=== PATIENT | female | born 1980 | race Caucasian/White ===

== ENCOUNTER → 2019-02-13 15:32 | Outpatient (ROUT) | payer OTHER, MEDICAID, SELFPAY | PROVIDERS: Visit Provider Nurse Practitioner Obstetrics & Gynecology | DX: O09.523 Supervision of elderly multigravida, third trimester (principal); Z11.0 Encounter for screening for intestinal infectious diseases | CPT/HCPCS: 87081 ==

== ENCOUNTER 2019-03-03 01:36 | Observation (INO) | payer OTHER, MEDICAID, SELFPAY ==
[2019-03-03 01:43] VITALS: BMI 29.5
[2019-03-03 01:58] VITALS: BP 98/52; PULSE 107; RESP 16; TEMP 37.4; O2SAT 95
--- NOTE | 2019-03-03 02:00 | P.HPOB_ITS ---
OB HPI History of Present Condition Chief complaint: pnuemonia Narrative: Jody Quinteros is a 38 year old female @38 weeks by early US dating transferred from [facility] ED by air transport for admission for CAP and tachycardia. No concern for labor at this time. +FM and no cramping, leaking fluid or vaginal bleeding. Presented to the ED with flu like symptoms on Tamiflu x2 days (started 02/28/19 evening). Was diagnosed in ED with R middle lobe pneumonia by chest x-ray and persistent tachycardia 105-120bpm. Uncomplicated care w/ CMN. Meds: Received Albuterol nebulizer in ED @2040 which helped her breathing. Received potassium chloride 20mEq @4, ceftriaxone 2g IV @ 2234, azithromycin 500mg IV @ 6 and oseltamivir 75mg @ 2345. Takes vitamin daily, sertraline 25mg daily in am and levothyroxine 50mcg daily at bedtime and did not take it tonight. Evaluation Evaluation Baseline heart rate: 145 Variability: Moderate (11-25) monitor accelerations: Present monitor decelerations: Variable Contraction Frequency (minutes): 0 Laboratory results: CE deferred [facility] Medical History (Updated 03/03/19 @ 02:31 by Anju Vázquez CNM) ACL (anterior cruciate ligament) tear (Acute) Surgical History (Updated 03/03/19 @ 02:17 by Anju Vázquez CNM) History of repair of ACL (Acute) Social History (Updated 03/03/19 @ 02:18 by Anju Vázquez CNM) marital status: number of children: 4 household members: spouse and children lives independently: Yes housing: house education level: college Smoking Status: Never smoker alcohol intake: former substance use type: does not use Meds Home Medications and Allergies Home Medications Medication Instructions Recorded Confirmed Type levothyroxine 50 mcg PO DAILY 03/03/19 03/03/19 History oseltamivir 75 mg PO BID 03/03/19 03/03/19 History vit no.[id number] 1 tab PO DAILY 03/03/19 03/03/19 History [Classic ] sertraline 25 mg PO DAILY 03/03/19 03/03/19 History Allergies Allergy/AdvReac Type Severity Reaction Status Date / Time No Known Drug Allergies Allergy Verified 03/03/19 02:07 Review of Systems Constitutional Constitutional: Reports chills and Reports fatigue ENT Ears, Nose, Mouth, and Throat: Yes hoarseness, Yes nasal congestion and Yes sore throat Respiratory Respiratory: Reports chest congestion, Reports cough and Reports pain with cough Endocrine Endocrine: Reports fatigue Exam Vital Signs (past 8 hours): BP 9/52, [id number], IiB841%RA, T99.4F, RR16 Oxygen Delivery Method Room Air Const General: cooperative and well groomed Orientation: alert, awake and oriented x3 HENMT Head: normal to inspection Eyes General: appearance normal, both eyes and all related structures Conjunctivae: conjunctivae normal Neck Neck: normal visual inspection and full ROM Chest Chest: normal inspection of the chest Resp Effort & Inspection: able to speak in complete sentences and cough Auscultation: clear to auscultation bilaterally Cardio Rate: regular rate Rhythm: regular rhythm Heart Sounds: S1 normal and S2 normal Uterus Location (Fundal Height): 38 Presentation: vertex Estimated Weight (lbs): 7 Other: Reactive NST upon admission Objective Imaging Chest x-ray: Radiologist's impression: 03/02/19 @ 2150: Right middle lobe density adjacent to the cardiac margin. No pleural effusion or pneumothorax. No pulmonary edema Labs Labs: 03/02/19 @2053: WBC-11.8 Hgb-12.4 Hct-36.1 Plt-134 (L) Sodium-134 (L) potassium-3.2 (L) chloride-101 Glucose-124 Urine dip negative with exception of trace leukocytes and +2 ketones Lactate-1.1 Assessment and Plan Assessment and Plan Assessment and Plan narrative: A:Term multipara @ 38wks EGA AMA Hypothyroid-stable on levothyroxine depression-stable on sertraline idiopathic thrombocytopenia in Influenza Community aquired pneumonia Reactive NST P: Admit for observation. Will continue IV fluids, antiviral medication, antibiotics Q24 hours and normal outpatient medications. RT consultation for nebulizer treatments PRN. NST Q12 hours and VS Q4 hours. Encourage rest. Reassess in am. Consulted [facility]/ who agreed w/ plan of care. Time Spent with Patient Total time spent with greater than 50% in coordination of care (as documented) at patient's floor/unit and/or counseling patient:: 25 - 35 minutes
[2019-03-03] MEDS: ACETAMINOPHEN 325 MG TABLET 650 MG PO (02:18)
[2019-03-03] MEDS: LEVOTHYROXINE 50 MCG TABLET PO (02:18)
[2019-03-03] MEDS: LACTATED RINGERS 1,000 ML 125 ML IV (02:19)
[2019-03-03 02:39] VITALS: PULSE 96; RESP 16; O2SAT 96
[2019-03-03] MEDS: ALBUTEROL 2.5 MG/3 ML NEB (ADULT) INH (02:39)
[2019-03-03] MEDS: BENZOCAINE/MENTHOL 1 LOZ PKT 1 EACH PO ×2 (03:00→07:30)
--- NOTE | 2019-03-03 03:09 | PC.ADMIT ---
Addendum entered by Starr Mario R.N. 03/03/19 05:53: Patient resting. C/O sore throat - Anju Vázquez CNM aware, Cepacol per orders. BP 85/48 MAP 66. Receiving maintenance IVF and in NAD. CNM aware of BP on the low side, this is baseline for patient. Temp 100.1, tylenol given prior for mild pain. Patient without contractions. No acute changes since admission. Original Note: 5 [facility] Admission Note: The patient,Jody Quinteros,38 y/o, was given written information regarding hospital policies, unit procedures and contact persons. Patient's smoking status: Never smoker. Vital Signs - 8 hr 03/03/19 01:58 03/03/19 02:39 Temperature 99.4 F Pulse Rate 107 H 96 H Respiratory Rate 16 16 Blood Pressure 98/52 L Pulse Oximetry 95 96 Patient arrived @ 0120 to room 105 from [place] via EMS transport. Awake, alert in NAD. Temp 99.4 - face flushed. C/O back pain from stretcher 06/08. Anju Vázquez CNM at bedside upon arrival. 38 weeks TOCO with FHT 145-160. BP stable at patient's baseline. Slight sinus tachycardia - 90's to low 100's. Up to BR with SBA, steady gait. Voiding without difficulty. IVF initiated per orders LR @ 125 mL/hour. RT at bedside for breathing treatment. Pt c/o tightness upon inspiration. Oriented to room, plan of care and call light.
[2019-03-03 03:50] VITALS: BP 85/48; PULSE 100; RESP 16; TEMP 37.8; O2SAT 98
[2019-03-03 06:23] VITALS: BP 106/44; PULSE 97; RESP 16; TEMP 36.3; O2SAT 98
[2019-03-03 07:40] VITALS: BP 91/48; PULSE 85; RESP 18; TEMP 36.4; O2SAT 98
--- NOTE | 2019-03-03 08:33 | CM.DANOTE ---
Discharge Planning/Care Management DCP: assessment: case received, EMR reviewed. Documentation reveals that pt is a 38 year old female who was airlifted from [facility] on [facility] to care of OBGYN team. Admitted by NESSA Vázquez who also consulted with automation machine operator Dr. Kenny early this mornin Pt is under care of CMN Mirela Pineda and with an uncomplicated course. She is admitted now for Community Acquired Pneumonia with tachycardia and is in the ICU setting. DROPLET Precautions: noted. Payer: [employer] [facility]/Medicaid. Pt's spouse: Adán Mccraryvist: cell [phone]. DCP team will be following as POC unfolds to assist with any d/c needs that may arise and to continue the assessment process as pt when pt is feeling better. CM Discharge Assessment Start: 03/03/19 08:31 Freq: Status: Active Protocol: Document 03/03/19 08:31 ITV (Rec: 03/03/19 08:32 ITV [id number]) Discharge Planning Assessment Advance Directives? No History Provided By Medical Record Prior Living Arrangements House Household Members spouse,children Comment 4 children. currently 38 weeks . Review Status In Process
[2019-03-03] MEDS: OSELTAMIVIR 75 MG CAPSULE PO (08:45)
[2019-03-03] MEDS: PRENATAL VIT,CALC/IRON/FOLIC 1 TABLET 1 TAB PO (08:45)
[2019-03-03] MEDS: SERTRALINE 25 MG TABLET PO (08:45)
[2019-03-03] MEDS: ZOLPIDEM 5 MG TABLET PO (09:13)
--- NOTE | 2019-03-03 09:18 | PC.NURSE ---
Patient alert, oriented, denies shortness of breath, nausea. Reports pain to left ribs with coughing, afebrile up to bathroom independent. Anju Honeycutts in to see patient and check FHT. Patient requesting something for sleep, 5mg ambien given as ordered for one time dose now.
[2019-03-03 10:06] LABS: Procalcitonin < 0.05 ng/mL (<0.5)
--- NOTE | 2019-03-03 13:35 | PM.PN.1 ---
Subjective Subjective Date Patient Seen: 03/03/19 Time Patient Seen: 08:45 Interval history: Patient has been afebrile without tachycardia since 2am. Has been unable to sleep due to ICU activity and is requesting medication to sleep. Feels slightly improved since prior to ED visit. Continues to have productive cough. Respiratory effort improved w/ nebulizer treatments. Exam Vital Signs (past 8 hours): - 03/03/19 06:23 03/03/19 07:40 Temperature 97.3 F L 97.6 F Pulse Rate 97 H 85 Respiratory Rate 16 18 Blood Pressure 106/44 L 91/48 L Pulse Oximetry 98 98 Fraction of Inspired Oxygen 96 Oxygen Delivery Method Room Air Oxygen Flow Rate 0 Resp Effort & Inspection: able to speak in complete sentences and cough Auscultation: clear to auscultation bilaterally Cardio Palpation: normal PMI Rate: regular rate Rhythm: regular rhythm Heart Sounds: S1 normal and S2 normal Objective Labs Labs: Laboratory Results - last 24 hr 03/03/19 03/03/19 01:20 09:11 Procalcitonin < 0.05 Nasal Screen MRSA (PCR) Negative for mrsa Assessment & Plan Assessment & Plan narrative: A:Term multipara @ 38wks EGA AMA Hypothyroid-stable on levothyroxine depression-stable on sertraline idiopathic thrombocytopenia in Influenza B Community aquired pneumonia, likely viral P: Discussed case with and who recommend procalcitonin level which was ordered and pending. Suspect no need to continue antibiotic tx. Will order zolpidem for sleep, encourage 6 hours of sleep and consult IM/ this afternoon prior to discharge. FHR monitors placed by CNM, initially looking good, will have OB RN come removed monitors and call if non-reactive. Time Spent With Patient Time with patient: less than 15 minutes Quality VTE Deep Vein Thrombosis/Pulmonary Embolism Present on Admission: No
--- NOTE | 2019-03-03 13:47 | P.DS_ITS ---
History of Present Illness History of Present Illness Chief complaint: pneumonia Discharge Providers Provider Date of admission: 03/03/19 01:36 Discharge Date: 03/03/19 Primary care physician: Mirela Pineda MD Discharge provider: Anju Vázquez CNM Summary Hospital Course Discharge Diagnosis: Pneumonia Tachycardia-resolved Hospital Course: Patient was admitted for observation from [facility] ED where influenza B, R middle lobe pneumonia and tachycardia was diagnosed. Give 38 week gestational age of living remote form medical treatment facility, observation was warranted. Tachycardia has resolved and patient remains afebrile. FM has been felt and NSTs x2 have been reactive, no contractions. Status at Discharge Cognitive/behavioral status at discharge: oriented Overall status at discharge: patient is progressing back to baseline Time Spent with Patient Time spent: Less than 30 minutes Exam Vital Signs (past 8 hours): - 03/03/19 06:23 03/03/19 07:40 Temperature 97.3 F L 97.6 F Pulse Rate 97 H 85 Respiratory Rate 16 18 Blood Pressure 106/44 L 91/48 L Pulse Oximetry 98 98 Fraction of Inspired Oxygen 96 Oxygen Delivery Method Room Air Oxygen Flow Rate 0 Resp Effort & Inspection: normal respiratory effort, able to speak in complete sentences and cough Auscultation: clear to auscultation bilaterally Cardio Rate: regular rate Rhythm: regular rhythm Heart Sounds: S1 normal and S2 normal OB/External & Speculum: deferred Uterus Location (Fundal Height): 38 Presentation: vertex Objective Labs Labs: Laboratory Results - last 24 hr 03/03/19 03/03/19 01:20 09:11 Procalcitonin < 0.05 Nasal Screen MRSA (PCR) Negative for mrsa Discharge Plan Discharge Plan Patient Disposition: Home Discharge orders & Medications Prescriptions: New acetaminophen 325 mg Tablet 650 mg PO Q4HR PRN (Reason: Fever/Mild Pain (1-3)) 14 Days Qty: 100 RF: 1 Continued levothyroxine 50 mcg tablet 50 mcg PO DAILY RF: 0 oseltamivir 75 mg capsule 75 mg PO BID RF: 0 sertraline 50 mg tablet 25 mg PO DAILY RF: 0 Classic 28 mg iron- 800 mcg Tablet 1 tab PO DAILY RF: 0 Follow up/Referrals: Anju Vázquez CNM [[employer]] - (Wednesday03/06/19 @ 0930) Mirela Pineda MD [Primary Care Provider] - Diet/Activity/Treatments Diet: Diet as Tolerated Diet comment: frequent/increased fluids Activity: as tolerated Skin/Wound/Dressing Care Report to your healthcare provider any signs of infection, such as:: chills, fever and increased pain Visit Report/Discharge Packet Instructions: DI for Pneumonia -- Adult, DI for Influenza -- Adult Discharge Data Primary Care Provider: Mirela Pineda Attending Provider: nAju Vázquez Admit Date/Time: 03/03/19 01:36 Quality VTE Deep Vein Thrombosis/Pulmonary Embolism Present on Admission: No
[2019-03-03 16:27] VITALS: BP 122/70; PULSE 91; RESP 20; TEMP 36.7; O2SAT 96
== END 2019-03-03 18:38 | disposition home or self-care (01) ==
PROVIDERS: Admitting Provider Nurse Practitioner Obstetrics & Gynecology; PCP Specialist; Visit Provider Nurse Practitioner Obstetrics & Gynecology
DX: J18.1 Lobar pneumonia, unspecified organism (principal); J10.00 Influenza due to other identified influenza virus with unspecified type of pneumonia; J06.9 Acute upper respiratory infection, unspecified; Z33.1 Pregnant state, incidental; Z3A.38 38 weeks gestation of pregnancy; R00.0 Tachycardia, unspecified; E03.9 Hypothyroidism, unspecified; F32.9 Major depressive disorder, single episode, unspecified
CPT/HCPCS: 36415; 84145; 87797; 94640; G0378; G0379; J7613

== ENCOUNTER 2019-03-14 07:34 | Inpatient (IN) | payer OTHER, MEDICAID, SELFPAY ==
--- NOTE | 2019-03-14 07:53 | P.HPOB_ITS ---
OB HPI Date/Time Date of admission: 03/14/19 Date Patient Seen: 03/14/19 Time Patient Seen: 07:40 History of Present Condition Chief complaint: : 5 Para: 4 Estimated Date of Delivery: 03/16/19 Estimated Gestational Age (weeks): 39.5 Narrative: Jody Quinteros is a 38 year old female Indications Indication for induction OB: maternal distance and history of rapid labor History of Present care: good care, initiated at week # (20), number of visits (9) and pounds weight gain (31) Dating criteria: based on 1st trimester US only (8 wk US->ROSA 03/16/19) Ultrasounds: normal 1st trimester US and normal mid trimester US Obstetrical complications: other (hypothyroid and depression) Medical complications: respiratory (38 weeks EGA: Influenza B-resolved and R middle lobe CAP-resolved) Preadmission Labs Blood type: 0 (-) negative -: Antibody screen: negative, Cystic fibrosis screen: unknown, GBS status: negative, HBsAG: negative, HIV: negative and RPR/VDLR: negative -: Rubella: immune and Varicella: unknown HCT: 35.7 3 hr GTT: 2 hr (75) Fasting blood glucose: 85 Prior (ies) History: 12/17/11: NSVB @ 41.5, 9#6oz male 09/19/13: NSVB @41.6, 9#14oz male 05/29/15: NSVB @41wks, 9#2oz female 04/28/17: NSVB@41.6wks, 8#12oz female All post date IOLs w/ no pain medication and no complications Evaluation Evaluation Baseline heart rate: 130 Variability: Moderate (11-25) monitor accelerations: Present monitor decelerations: Absent Contraction Frequency (minutes): 0 Uterine Contraction Intensity: Mild Category of Tracing: I Cervical dilation (cm): 4 Cervical effacement (%): 70 station: -3 [facility] Medical History 38 weeks gestation of (Inactive) ACL (anterior cruciate ligament) tear (Acute) Consolidation of middle lobe of lung (Inactive) Influenza B (Inactive) Surgical History History of repair of ACL (Acute) Social History marital status: number of children: 4 household members: spouse and children lives independently: Yes housing: house education level: college Smoking Status: Never smoker alcohol intake: former substance use type: does not use Meds Home Medications and Allergies Home Medications Medication Instructions Recorded Confirmed Type Classic 1 tab PO DAILY 03/03/19 03/14/19 History levothyroxine 50 mcg PO DAILY 03/03/19 03/14/19 History sertraline 25 mg PO DAILY 03/03/19 03/14/19 History Allergies Allergy/AdvReac Type Severity Reaction Status Date / Time No Known Drug Allergies Allergy Verified 03/03/19 02:07 Review of Systems Review of Systems ROS Unobtainable: All systems reviewed & are unremarkable except as noted in HPI and below Exam Vital Signs (past 8 hours): BP 111/59, HR-85, T36.3C Temporal Chest Chest: normal inspection of the chest Resp Effort & Inspection: normal respiratory effort Auscultation: clear to auscultation bilaterally Cardio Rate: regular rate Rhythm: regular rhythm Heart Sounds: S1 normal and S2 normal Uterus Location (Fundal Height): 39 Presentation: vertex Estimated Weight (lbs): 8 Assessment and Plan Assessment and Plan Assessment and Plan narrative: A:Term multipara AMA Elective IOL Hyporthyoid-stable on levothyroxine depression-stable on sertraline Rh negative No indication for GBS prophylaxis Cat I FHR P:Admit, routine orders w/ CBC, T&S. SL IV declined by patient. Breast pump then AROM. [place] notified of patient admit status and POC. Labor support PRN. Time Spent with Patient Total time spent with greater than 50% in coordination of care (as documented) at patient's floor/unit and/or counseling patient:: 15-24 minutes
[2019-03-14 08:35] LABS: Add Manual Diff / Slide Review NO; Basophils Absolute Auto 0 /uL (0-100); Basophils Percent Auto 0.3 % (0-2); Eosinophils Absolute Auto 0 /uL (0-450); Eosinophils Percent Auto 0.3 % (2-4); Hematocrit 37.2 % (36-46); Hemoglobin 12.8 g/dL (12.0-16.0); Lymphocytes Absolute Auto 1800 /uL (1100-4500); Lymphocytes Percent Auto 14.7 % (25-40); Mean Corpuscular HGB Conc 34.4 % (30-36); Mean Corpuscular Hemoglobin 32.4 PG (26-34); Mean Corpuscular Volume 94.1 fL (80-100); Monocytes Absolute Auto 500 /uL (0-900); Monocytes Percent Auto 4.1 % (3-14); Neutrophils Absolute Auto 9800 /uL (1500-7000); Neutrophils Percent Auto 80.6 % (50-75); Platelet Count 284 X10^3/uL (150-400); Red Blood Cell Count 3.95 X10^6/uL (4.0-5.2); Red Cell Distribution Width 13.5 % (11.6-14.8); White Blood Cell Count 12.2 X10^3/uL (4.5-11.0)
[2019-03-14] MEDS: LACTATED RINGERS 1,000 ML 125 ML IV ×4 (11:50→22:50)
--- NOTE | 2019-03-14 14:57 | PM.OBPNLAB ---
Date/Time Date Patient Seen: 03/14/19 Time Patient Seen: 13:25 Pain Control Pain control: tolerating well and epidural Comments: Pt elected epidural prior to AROm given hx of 1 hr labor from AROM to with last Pelvic Exam Dilation (cm): 4 Effacement (%): 70 station: -3 Amniotic membrane status: Ruptured Contractions Contractions on admission: irregular Monitor mode: External Pitocin rate (mU/min): 0 Contraction frequency (min): 5 Contraction duration (min): 1 Contraction pattern: Regular Contraction intensity: Mild Status status: Category l Heart Rate Baseline: 125 Monitor Accelerations: Present Monitor Decelerations: Late Monitor Variability: Moderate Comments: Patient had tachysystole w/ recurrent late decelerationw w/ pumping earlier. Late decelerations resolved w/ cessation of pumping. Single prolonged deceleration x3.5 minutes, janneth to 105bpm, w/ AROM. Single, rare late decleration after that during 3 minute long ctx. Otherwise reassuring FHR. Assessment and Plan Assessment: induction ongoing Plan: continuous present management Comments: Pt declined medication for IOL. Will reassess 4 hours after AROM. If no active labor after 4 hours from AROM, will recommend pitocin augmentation.
[2019-03-14 15:09] VITALS: BP 111/59
[2019-03-14] MEDS: OXYTOCIN PREMIX 30 UNIT/500 ML PLAST..BAG IV (20:43)
[2019-03-14] MEDS: CALCIUM CARBONATE 500 MG TAB 1000 MG PO (21:31)
--- NOTE | 2019-03-14 22:48 | PM.OBPNLAB ---
Date/Time Date Patient Seen: 03/14/19 Time Patient Seen: 19:05 Pain Control Pain control: tolerating well and epidural Comments: Pt remains afebrile w/ clear amniotic fluid Pelvic Exam Dilation (cm): 9 Effacement (%): 100 station: 0 Amniotic membrane status: Ruptured Contractions Contractions on admission: irregular Monitor mode: External Pitocin rate (mU/min): 0 Contraction frequency (min): 3 Contraction duration (min): 200 Contraction pattern: Regular Contraction intensity: Mild Status status: Category ll Heart Rate Baseline: 120 Monitor Accelerations: Present Monitor Decelerations: Variable Monitor Variability: Moderate Assessment and Plan Assessment: active labor and induction ongoing Plan: continuous present management Comments: Continue to monitor closely. Will attempt manual rotation if no descent, given OP position, in 2 hours.
--- NOTE | 2019-03-14 22:51 | PM.OBPNLAB ---
Date/Time Date Patient Seen: 03/14/19 Time Patient Seen: 22:30 Pain Control Pain control: tolerating well and epidural Comments: Pt has had epidural replaced and c/o gas pain and back pain that was improved w/ anesthesia bolus and hands and knees position Pelvic Exam Dilation (cm): 10 Effacement (%): 100 station: 0 Amniotic membrane status: Ruptured Contractions Contractions on admission: irregular Monitor mode: External Contraction frequency (min): 3 Contraction duration (min): 120 Contraction pattern: Regular Contraction intensity: Mild Status status: Category ll Heart Rate Baseline: 140 Monitor Accelerations: Absent Monitor Decelerations: Prolonged Monitor Variability: Moderate Assessment and Plan Assessment: active labor Plan: other (Consult OB and request presence for persitent cat II FHR and no descent w/ pushing) Comments: Manual rotation performed w/ movement of head from LOP to LOT position, head returned to LOT position with next contraction. Fetus remain OP at 0 station after several attempt at pushing. Pt in hands and knees and consulted/presence requested..
--- NOTE | 2019-03-14 23:28 | PM.OBPRVD ---
 Events: Labor Induction Labor & Delivery Delivery date: 03/14/19 Cervical ripening method: none Induction method: AROM Delivery monitor: external FHT Route of delivery: L&D Laceration Description: None Estimated blood loss (mL): 200 Anesthesia type: Epidural Narrative: Patient had prolonged period of time at 9.5cm/0 station with lots of position changes and attempted manual rotation of OP fetus. Comfort was achieved w/ 2nd epidural placement. Cat II FHR for recurrent deep variables and OB was requested to consult for . Pt progressed to complete/+1 in hands and knees position and achieved NSVB after 2 pushes. Fetus was in LOP position, sommersaulted through a tight nuchal cord. [place] passed through maternal legs w/ 7/9 Apgars. Jody was assisted to semi West's position with her in her arms. 30 units of pitocin in 500mL LR was started at 300mL/hr for AMTSL. After cessation of pulsation, the cord was double clamped by CNM and cut by FOB. Gentle cord traction and single maternal push led to spontaneous, Schultze delivery of an apparently intact placenta, membranes and 3VC. Fundus immediately firm and bleeding minimal. Vagina and perineum inspected and intact. Clots were expressed and misoprostil 400mcg SL was given. Baby 1: Infant gender: Female Presentation: vertex position: Right Occiput Posterior (LOP) Placenta delivery description: Spontaneous cord vessel description: 3 Vessels score (1 min): 7 score (5 min): 9 Plan for aftercare: Routine PP orders. RN to monitor bleeding closely. Anticipate d/c to home in 18-36 hours.
[2019-03-15] MEDS: miSOPROStoL 200 MCG TABLET 400 MCG PO (00:03)
[2019-03-15] MEDS: KETOROLAC 30 MG/ML VIAL IV (01:30)
[2019-03-15] MEDS: SERTRALINE 50 MG TABLET 25 MG PO (07:57)
[2019-03-15] MEDS: IBUPROFEN 600 MG TABLET PO ×3 (07:57→20:17)
[2019-03-15 08:36] LABS: Hemoglobin 12.9 g/dL (12.0-16.0)
[2019-03-15] MEDS: DOCUSATE 100 MG CAPSULE PO (10:13)
--- NOTE | 2019-03-15 11:57 | P.PNOB_ITS ---
Subjective - OB Subjective Patient comments: no complaints and pain well controlled feeding status: exclusively breast feeding Narrative: Pt sitting up in bed, feeling well. Voiding and ambulating independently. Tolerating general diet. Minimal pain, well controlled. exclusively with discomfort d/t inverted nipples. Bleeding minimal, no clots. Wants additional help w/ . Desires d/c to home tomorrow. Date Patient Seen: 03/15/19 Time Patient Seen: 10:30 Exam Vital Signs (past 8 hours): HR 67, RR17, BP108/62, T97.7F temporal OB/External & Speculum: deferred Other: FF@ U-2, lochia light, no clots Objective Labs Result Diagrams: 03/15/19 08:25 Labs: Laboratory Results - last 24 hr 03/15/19 03/15/19 08:25 08:25 Hgb 12.9 Hct 38.0 Maternal Bleed Negative Assessment & Plan Time Spent With Patient Time: Total time spent is greater than 50% in coordination of care (as docu mented) at patient's floor/unit and/or counseling patient: Recommend pumping prior to feeding to draw out nipples. Ordered lanolin and breast gel pads for relief. Counseled on routine PP course and anticipate d/c to home tomorrow. Time with patient: 25 - 35 minutes
[2019-03-15] MEDS: RHO(D) IMMUNE GLOBULIN 1,500 UNIT SYRINGE 1500 UNIT IM (16:11)
[2019-03-16] MEDS: IBUPROFEN 600 MG TABLET PO ×2 (04:10→10:24)
--- NOTE | 2019-03-16 07:21 | PM.OBDS.1 ---
Discharge Providers Provider Date of admission: 03/14/19 07:34 Discharge Date: 03/16/19 Primary care physician: Mirela Pineda MD Consults: 03/14/19 12:44 Consult to Anesthesiology Urgent Comment: Consulting Provider: Nils Peters Reason for consultation: pt requests epidural Has provider been notified: Yes 03/15/19 23:25 Consult to Production Clerk Routine Comment: Not completed d/t weather staffing Discharge provider: Anju Vázquez CNM Summary Time Spent with Patient Time attestation: Total time spent providing and/or coordinating discharge services: Objective Labs Result Diagrams: 03/15/19 08:25 Labs: Laboratory Results - last 24 hr 03/15/19 03/15/19 08:25 08:25 Hgb 12.9 Hct 38.0 Maternal Bleed Negative Exam Vital Signs (past 8 hours): BP 102/62, HR 46 (sleeping), RR 16. T98.1 Other: Fundus firm @ u, midline, lochia light, per RN Perineum intact Rhogam was given 03/15/19 Psych Thought Process: normal Discharge Plan Discharge Plan Patient Disposition: Home Discharge orders & Medications Prescriptions: New acetaminophen 325 mg Tablet 650 mg PO Q6HR PRN (Reason: Pain, Mild (1-3)) 14 Days Qty: 100 RF: 2 Ils-P-Xjewdu Cream 1 applic topical PRN PRN (Reason: Sore Nipples) 28 Days Qty: 60 RF: 2 ibuprofen 600 mg Tablet 600 mg PO Q6HR PRN (Reason: Pain, Mild (1-3)) 14 Days Qty: 45 RF: 1 docusate sodium [DOK] 100 mg Capsule 100 mg PO DAILY 14 Days Qty: 30 RF: 0 Continued sertraline 50 mg tablet 25 mg PO DAILY RF: 0 Classic 28 mg iron- 800 mcg Tablet 1 tab PO DAILY RF: 0 Discontinued levothyroxine 50 mcg tablet 50 mcg PO DAILY RF: 0 Follow up/Referrals: Mirela Pineda MD [Primary Care Provider] - Anju Vázquez CNM [Advanced [employer] Data Warehouse Developer] - (Follow-up at 2 weeks and 6 weeks . Pt to schedule appointment online. ) Diet/Activity/Treatments Diet: Diet as Tolerated and Regular Activity: increase as tolerated. Pelvic rest x 6 weeks. Skin/Wound/Dressing Care Report to your healthcare provider any signs of infection, such as:: chills, fever, increased pain and unusual redness Visit Report/Discharge Packet Instructions: Depression Discharge Data Primary Care Provider: Mirela Pineda
[2019-03-16 08:56] VITALS: BP 94/62; PULSE 71; RESP 16; TEMP 36.2
[2019-03-16] MEDS: DOCUSATE 100 MG CAPSULE PO (09:09)
[2019-03-16] MEDS: SERTRALINE 50 MG TABLET 25 MG PO (09:10)
== END 2019-03-16 10:41 | disposition home or self-care (01) | DRG 560 ==
PROVIDERS: Admitting Provider Nurse Practitioner Obstetrics & Gynecology; PCP Specialist; Visit Provider Nurse Practitioner Obstetrics & Gynecology
DX: O64.0XX0 Obstructed labor due to incomplete rotation of fetal head, not applicable or unspecified (principal); Z3A.39 39 weeks gestation of pregnancy; Z37.0 Single live birth; O69.1XX0 Labor and delivery complicated by cord around neck, with compression, not applicable or unspecified; O76 Abnormality in fetal heart rate and rhythm complicating labor and delivery
CPT/HCPCS: 01967; 36415; 59050; 85014; 85018; 85025; 85461; 86850; 86900; 86901; G0379; J1885; J2590; J2790; S0191